=== PATIENT | female | born 1950 | race Caucasian/White ===

== ENCOUNTER → 2017-03-21 | Day surgery (SDC) | payer MEDICARE, OTHER ==
[~2017-03-21] VITALS: Ht 161.3 cm; Wt 52.7 kg
[~2017-03-21] MED LIST: *ONDANSETRON 4 MG VIAL PERIprocedural Use ONLY ONE; *morphine SULFATE 8 MG/ML PERIprocedure ONLY ONE; ACETAMINOPHEN 1000 MG/100 ML VIAL IV ONE; BUPIVACAINE/EPINEPHRINE 0.25% 50 ML VIAL ONE; CHLORHEXIDINE GLUCONATE 2 % 1 PACK (2 CLOTHS) TOPICAL PRN; CLINDAMYCIN INJ 900 MG in SODIUM CHLORIDE 0.9% INJ 100 ML IV PRN; DEXAMETHASONE SOD PHOS 4 MG/ML VIAL ONE; DO NOT ADM ANY ANTICOAGULANT DRUGS PRN; ESTROGENS CONJUGATED VAG CREA 15 APPL/30 GM TUBE ONE; FAMOTIDINE 20 MG/2 ML VIAL ONE; INSULIN HUMAN REGULAR 1,000 UNITS/10 ML VIAL SQ PRN; KETOROLAC TROMETHAMINE 60 MG/2 ML (IM) VIAL IM ONE; LACTATED RINGER'S 1000 ML INJ 1,000 ML IV ONE; LACTATED RINGER'S 1000 ML IV PRN; LOSA50TA PO; METHYLENE BLUE 10 MG/ML VIAL IV PUSH ONE; METO25TA3 PO; METOPROLOL TARTRATE 25 MG TAB PO PRN; MIDAZOLAM HCL 2 MG/2 ML VIAL ONE; NEOSTIGMINE 3 MG/3 ML SYR IV ONE; ONDANSETRON HCL 4 MG/2 ML VIAL IV PUSH ONE; POVIDONE IODINE 5% (ANTISEPSIS KIT) 4 APPLICATIONS EACH NARE PRN; PROPOFOL 200 MG/20 ML AMP IV ONE; SODIUM CHLORID 0.9% 500 ML IV PRN; SODIUM CHLORIDE 0.9% INJ 100 ML ONE; VASOPRESSIN 20 UNITS/ML VIAL (IVTITR) ONE; fentaNYL CITRATE 250 MCG/5 ML AMP ONE; oxyCODONE/ACETAMINOPHEN 5 MG/325 MG TAB PO PRN
[2017-03-21 07:08] VITALS: BP 183/88; PULSE 73; RESP 20; TEMP 98.8; O2SAT 100
--- NOTE | 2017-03-21 07:32 | PD.OP ---
Operative Report Date of Surgery: Mar 21, 2017 Preoperative Diagnosis: (1) Incomplete uterovaginal prolapse (2) Intramural leiomyoma of uterus (3) Cystocele, midline (4) Pelvic and perineal pain Postoperative Diagnosis: (1) Incomplete uterovaginal prolapse (2) Intramural leiomyoma of uterus (3) Pelvic and perineal pain Procedure: 1. LAVH 2. BSO 3. culdoplasty Anesthesia: General Surgeon: Shirin Lomax Burr Grinder(s): OR Staff Operation and Findings: IVF: 1800 ml LR + IV antibiotics given prior to surgery + Methylene blue EBL: 150 ml UO: 300 ml Findings: normal uterus, tubes and ovaries; some abdominal adhesions Specimens: cervix, uterus, tubes, ovaries Complications: none Condition: stable Disposition: PACU Descriptions of the procedure: I discussed the risks, benefits and alternatives of the procedure with the patient. Informed consent was obtained after questions were answered. She was then taken to the operating room with her IV running. She was placed in the supine position and was given general anesthesia without difficulties or complications. She was then placed in the dorsal lithotomy position and was prepped and draped in the usual sterile fashion. Attention was first turned to the patient's genital area. A bivalved speculum was introduced inside the patient's vagina. The anterior aspect of the cervix was grasped with a single tooth tenaculum for manipulation. The cervix was carefully dilated and a uterine manipulator was carefully introduced inside her uterus. The rest of the instruments were removed from the patient's vagina and a sterile blue towel was used to cover the perineum. The surgeon changed gloves and attention was then turned to the patient's abdomen. A vertical umbilical incision was made with the scalpel. A 5 mm trocar was introduced inside the patient's abdomen under direct visualization. A pneumo -peritoneum was created with CO2 gas. Next, three 5 mm trocars were introduced inside the patient's abdomen under direct visualization in the lower right, mid , and left abdomen. A survey of the patient's abdomen revealed normal anatomy with numerous areas of adhesions. A survey of the patient's pelvis revealed the findings noted above. The round ligaments and infundibulopelvic ligaments were carefully and serially grasped, electrocauterized and cut with the Harmonic scalpel. Excellent hemostasis was noted. The tissues along the uterus on both sides were serially grasped, electrocauterized and transected with the Harmonic scalpel. The ureters were noted to be away from the surgical site. The uterine vessels were skeletonized, electrocauterized and transected with the Harmonic scalpel. Good hemostasis was noted. Next, the bladder flap was created and the bladder was dissected off the lower uterine segment. Excellent hemostasis was noted. At this point, attention was again turned to the patient's perineal area. The uterine manipulator was removed. The Bovie was used to circumferentially cut the vaginal tissues at the cervico-vaginal junction after Pitressin had been injected. The anterior cul de sac was entered without difficulties. The posterior cul de sac was also entered without difficulties. A retractor was introduced inside the posterior cul de sac. A retractor was placed inside the anterior cul de sac. Curved Renetta clamps were used to clamp the cardinal ligaments. These were transected with Nicole scissors and stitched with 0-Vicryl. Good hemostasis was noted. The rest of the tissues along the lower uterine segment were serially clamped, transected with Nicole scissors and stitched with 0 -Vicryl. Good hemostasis was noted at each pedicle. The cervix, uterus, tubes and ovaries were removed and sent to pathology. A sponge stick was used to check each pedicle for hemostasis. All the instruments were removed from the patient's pelvis. A Casas culdoplasty was carefully done. The peritoneum was reapproximated with a purse string stitch of 0-Vicryl. The pedicles were reapproximated and secured in order to get the vaginal cuff higher in the pelvis. The vaginal tissues were reapproximated with running, locked stitches of 0-Vicryl in a vertical fashion. Premarin cream was placed in the patient's vagina. The surgeon changed gloves and attention was turned again to the patient's abdomen. The pneumoperitoneum was recreated. The surgical sites were noted to be hemostatic. Copious irrigation was done. Methylene blue was given at the beginning of the surgical procedure. The ureters were identified and found to be away from the surgical sites. There was no evidence of injury or blockage of the ureters or bladder. Interseed was placed over the surgical site. All of the instruments were removed from the patient's abdomen. The ports were also removed under direct visualization. Excellent hemostasis was noted. The CO2 gas was carefully expressed out of the patient's abdomen. The skin incisions were injected with 0.5 % Marcaine and were reapproximated with subcutaneous stitches of 4-0 Vicryl. Mastisol and steri strips were placed over the incisions. The patient tolerated the procedure well. She was successfully extubated and transferred to PACU in stable condition. Note: I discussed surgical procedures and surgical findings with patient's significant other. His questions were answered. He verbalized understanding. Shirin Lomax MD Mar 21, 2017 07:32
--- NOTE | 2017-03-21 14:35 | EKG ---
Date Performed: 03/21/2017 Time Performed: 06:51:46 PTAGE: 66 years EKG: Sinus rhythm POSSIBLE RIGHT VENTRICULAR CONDUCTION DELAY MODERATE ST DEPRESSION ABNORMAL ECG NO PREVIOUS TRACING DOCTOR: Declan Amaya Interpretating Date/Time 03/21/2017 14:33:39
[2017-03-21 18:00] VITALS: BP 143/74; PULSE 84; RESP 18; TEMP 97.8; O2SAT 100
== END | disposition home or self-care (01) ==
LOC: HSDC 06:00
PROVIDERS: ATTEND Obstetrics & Gynecology
DX: N81.2 Incomplete uterovaginal prolapse (principal); D25.1 Intramural leiomyoma of uterus; R10.2 Pelvic and perineal pain; N88.0 Leukoplakia of cervix uteri; N73.6 Female pelvic peritoneal adhesions (postinfective); I10 Essential (primary) hypertension; Z79.899 Other long term (current) drug therapy
CPT/HCPCS: 00840; 58552; 86850; 86900; 86901; 88307; 93005; C1765; J0131; J1100; J1885; J2250; J2270; J2405; J2710; J3010; J7120